=== PATIENT | male | born 2000 | race Two or more races ===

== ENCOUNTER 2024-09-16 01:26 | Emergency (ER) | payer MEDICAID, OTHER ==
[~2024-09-16] VITALS: Ht 165.1 cm; Wt 69.1 kg
[2024-09-16 01:36] VITALS: BP 146/86; PULSE 90; RESP 16; TEMP 98; O2SAT 100
== END 2024-09-16 04:04 ==
LOC: EMS 01:27
DX: Z02.89 Encounter for other administrative examinations (principal); F10.129 Alcohol abuse with intoxication, unspecified; V49.40XA Driver injured in collision with unspecified motor vehicles in traffic accident, initial encounter; Y93.89 Activity, other specified; Y92.410 Unspecified street and highway as the place of occurrence of the external cause; Y99.8 Other external cause status; Y90.6 Blood alcohol level of 120-199 mg/100 ml
CPT/HCPCS: 99283; Z7502